=== PATIENT | female | born 1965 | race Caucasian/White ===

== ENCOUNTER → 2017-07-13 | Outpatient (CLI) | payer OTHER ==
[~2017-07-13] MED LIST: CALC600T31 PO; CITA20TA4 PO; CLOB-24 EX; CLOB5CR TOP; FOLI1TAB4 PO; LORA10TA2 PO; MULT1TAB10 PO; PRIL20CA9 PO; STEL45IN2 SC
--- NOTE | 2017-07-13 12:50 | REPMRS ---
Patient History The patient states she has not had a clinical breast exam in over a year. Family history of breast cancer in 2 maternal aunts at age 50 or over and breast cancer in maternal cousin under age 50. Digital Mammo Screening Bilat: July 13, 2017 - Exam #: [id number] Bilateral CC and MLO view(s) were taken. Technologist: Corinne Lagos, Technologist Prior study comparison: December 22, 2015, bilateral digital mammo screening bilat performed at [facility]. FINDINGS: There are scattered fibroglandular densities. There is a fairly symmetric fibroglandular pattern in both breasts. There has been no interval development of masses, areas of architectural distortion or clusters of microcalcifications typical of malignancy. ASSESSMENT: BI-RADS/ACR category 2 mammogram. Benign finding(s). Recommendation Routine screening mammogram of both breasts in 1 year (for women over age 40). This mammogram was interpreted with the aid of an FDA-approved computer-aided dectection system. Electronically Signed By: Jose Birmingham MD 07/13/17 1090
== END ==
LOC: M RAD 09:25
PROVIDERS: ATTEND Family Medicine
DX: Z12.31 Encounter for screening mammogram for malignant neoplasm of breast (principal)

== ENCOUNTER → 2017-12-01 | Outpatient (CLI) | payer OTHER ==
[~2017-12-01] MED LIST changes: -CALC600T31 PO; -CITA20TA4 PO; -CLOB-24 EX; -CLOB5CR TOP; -FOLI1TAB4 PO; +FUROSEMIDE 20 MG/2 ML VIAL (J1940) As Ordered; -LORA10TA2 PO; -MULT1TAB10 PO; -PRIL20CA9 PO; -STEL45IN2 SC
== END ==
LOC: M RAD 08:50
DX: N13.39 Other hydronephrosis (principal); R93.421 Abnormal radiologic findings on diagnostic imaging of right kidney
CPT/HCPCS: J1940

== ENCOUNTER 2018-05-16 11:59 | Outpatient (RCR) | payer OTHER | END 2018-05-23 | disposition home or self-care (01) | LOC: M PT 11:59 | DX: L40.9 Psoriasis, unspecified (principal) | CPT/HCPCS: 97028 ==

== ENCOUNTER 2018-05-25 07:54 | Outpatient (RCR) | payer OTHER | END 2018-06-22 | LOC: M PT 05-28 07:41 | DX: L40.9 Psoriasis, unspecified (principal) ==

== ENCOUNTER → 2019-08-30 | Outpatient (CLI) | payer BC, OTHER ==
[~2019-08-30] MED LIST changes: +CALC600T31 PO; +CITA20TA6 PO; +CLOB-24 EX; +CLOB5CR TOP; +FOLI1TAB11 PO; -FUROSEMIDE 20 MG/2 ML VIAL (J1940) As Ordered; +LORA-243 PO; +MULT1TAB10 PO; +PRIL20CA9 PO; +STEL45IN2 SC
[2019-08-30 09:14] LABS: APPEARANCE, URINE HAZY (CLEAR); BACTERIA, URINE AUTO 2+ (NEGATIVE); BILIRUBIN, URINE AUTO NEGATIVE (NEGATIVE); BLOOD, URINE BLOOD NEGATIVE (NEGATIVE); COLOR, URINE YELLOW (YELLOW); GLUCOSE, URINE (UA) AUTO NEGATIVE (NEGATIVE); KETONE, URINE AUTO NEGATIVE (NEGATIVE); LEUKOCYTE ESTERASE, URINE AUTO 2+ (NEGATIVE); MUCUS, URINE SMALL (NEGATIVE); NITRITE, URINE AUTO POSITIVE (NEGATIVE); PROTEIN, URINE AUTO NEGATIVE (NEGATIVE); RBC, URINE AUTO 6 /HPF (0-3); SPECIFIC GRAVITY URINE AUTO 1.006 (1.002-1.035); SQUAMOUS EPITHELIAL CELL UR AU 5 /HPF (0-6); UROBILINOGEN, URINE AUTO 0.2 mg/dL (0.0-2.0); WBC, URINE AUTO 48 /HPF (0-3)
[2019-08-30 09:17] LABS: BASO # 0.1 10^3/uL (0.0-0.2); BASO % 0.8 % (0.0-1.0); EOS # 0.2 10^3/uL (0.0-0.5); EOS % 2.7 % (0.0-3.0); HEMATOCRIT 37.8 % (36.0-47.0); HEMOGLOBIN 11.7 g/dl (12.0-15.5); LYMPH # 1.3 10^3/uL (1.5-5.0); LYMPH % 21.3 % (24.0-44.0); MEAN CORPUSCULAR HEMOGLOBIN 26.4 pg (27.0-33.0); MEAN CORPUSCULAR VOLUME 85.1 fl (80.0-96.0); MONO # 0.5 10^3/uL (0.0-0.8); MONO % 8.7 % (0.0-5.0); NEUTROPHILS # 3.9 10^3/uL (1.5-8.5); NEUTROPHILS % 66.2 % (36.0-66.0); PLATELET COUNT, AUTOMATED 298 10^3/uL (150-450); RED BLOOD COUNT 4.44 10^6/uL (4.00-5.40)
[2019-08-30 09:46] LABS: ALT/SGPT 17 U/L (12-78); BILIRUBIN,TOTAL 0.4 MG/DL (0.2-1.0); BLOOD UREA NITROGEN 9 MG/DL (7-18); CALCIUM LEVEL 8.3 MG/DL (8.5-10.1); CARBON DIOXIDE LEVEL 31 MEQ/L (21-32); CHLORIDE LEVEL 107 MEQ/L (98-107); CHOLESTEROL LEVEL 161 MG/DL (<200); CREATININE FOR GFR 0.98 MG/DL (0.55-1.30); GLOMERULAR FILTRATION RATE > 60.0 (>51); GLUCOSE, FASTING 75 MG/DL (70-100); POTASSIUM SERUM 3.4 MEQ/L (3.5-5.1); SODIUM LEVEL 144 MEQ/L (136-145); TRIGLYCERIDES LEVEL 86 MG/DL (<150)
[2019-08-30 09:47] LABS: ALBUMIN 3.4 GM/DL (3.2-5.2); CHOLESTEROL RISK RATIO 2.476 (<5); FREE T4 0.88 NG/DL (0.76-1.46); HDL CHOLESTEROL 65 MG/DL (>40); LDL CHOLESTEROL 79 MG/DL (<100); NON-HDL-C 96 MG/DL; TOTAL PROTEIN 6.3 GM/DL (6.4-8.2)
[2019-08-30 10:47] LABS: TOTAL 25(OH) VITAMIN D 56.5 NG/ML (30.0-100.0)
[2019-08-30 10:48] LABS: VITAMIN B12 LEVEL 611 PG/ML (247-911)
[2019-08-30 10:55] LABS: FOLATE > 24.0 NG/ML (>5.4)
== END ==
LOC: M LAB 08:25
PROVIDERS: ATTEND Family Medicine
DX: K21.9 Gastro-esophageal reflux disease without esophagitis (principal)